=== PATIENT | female | born 1940 | race Caucasian/White ===

== ENCOUNTER 2023-10-01 11:02 | Outpatient (AMB) | payer MEDICARE, SELFPAY ==
--- NOTE | 2023-10-01 11:04 | A.OFFVIS_ITS ---
Vital Signs 10/01/23 11:09 Height 5 ft 2 in Weight 152 lb BMI 27.8 BP 164/80 H Blood Pressure Location Rt brachial Position Sitting Respiration 17 Pulse 80 Pulse Source Pulse Oximeter Pulse Oximetry (%) 98 Oxygen Delivery Method Room Air Intake Visit Reasons: ENP: Dementia - LVM w/add Intake Note: Pt presents for new pt eval for dementia. Internal Wholesaler Required: No Allergies No Known Allergies Allergy (Verified 10/01/23 11:05) Medication List - Last Reconciled 10/01/23 by Ml Covarrubias MD [Apoaequorin PO DAILY] calcium carb-D3-mag ox-zinc ox 333 mg-133 unit -133 mg-5 mg tabs PO cholecalciferol (vitamin D3) 50 mcg PO DAILY HPI Comments Details: 82y/o female comes for evaluation of memory issues. she is accompanied by her son and daughter. Her family noticed that she was having some memory issues atleast for 5 years now and progressively worsened. she has trouble with names ,dates, repeating, missing bills, misplacing things , purse etc. she writes her appointments on a calender.she lives alone in an independent house alone and goes to [employer] with her neighbor.Her daughter oversees her finances. she still pays her own bills.she mujica snot remember her grand children names and does not know her grand children His brother brings dinner every night so she does not cook . 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 she is hearing impaired and uses hearing aides she exercises regularly . No known h/o head injury Her mother had some memory issues. [facility] Medical History (Updated 10/01/23 @ 12:12 by Ml Covarrubias MD) Dementia Hemorrhoids Diverticulosis Skin cancer Vitamin D deficiency Nephrolithiasis Small bowel obstruction Cholelithiasis Colonic polyp Iron deficiency anemia Osteopenia Hyperlipidemia Surgical History (Updated 10/01/23 @ 11:16 by Rosalva Joe CMA) H/O lithotripsy Hx of cholecystectomy Social History (Updated 10/01/23 @ 11:17 by Rosalva Joe CMA) Household Members: None Housing: House Alcohol intake: never Patient Tobacco Use Status: Never used Tobacco Use of substances other than those prescribed or required for medical reasons: No Physical Exam Vital Signs: Last Vital Signs Pulse 80 10/01/23 11:09 Resp 17 10/01/23 11:09 BP 164/80 H 10/01/23 11:09 Pulse Ox 98 10/01/23 11:09 Oxygen Delivery Method Room Air 10/01/23 11:09 BMI result Body Mass Index 27.8 Const Other: MOCA- - see attached document for details General: cooperative, healthy appearing, comfortable and no acute distress Nutritional Appearance: average body habitus Eyes Pupils: Equal, round and reactive pupils present Neuro General: gait normal, tone normal, moves all extremities and no focal motor deficits Cranial nerves: Yes Facial sensation intact/muscles of mastication intact, Yes Equal, round and reactive pupils present, Yes Bilaterally intact EOM present, Yes Nystagmus not present, Yes Normal facial strength present, Yes Midline tongue present, Yes Symmetric palate elevation present, Yes Ability to bilaterally rotate head present and Yes Ability to bilaterally elevate shoulders present Gait exam (Neuro): Normal gait present Motor exam (neuro): 5/5 motor strength present throughout and Normal motor muscle tone present throughout Deep tendon reflexes (DTR's): Right triceps reflex intensity grade: 2+, Left triceps reflex intensity grade: 2+, Rt Biceps (C5, C6): 2+, Left biceps reflex intensity grade: 2+, Right brachioradialis reflex intensity grade: 2+, Left brachioradialis reflex intensity grade: 2+, Right patellar reflex intensity grade: 2+ and Left patellar reflex intensity grade: 2+ Psych Appearance: grossly normal Speech and movement: Normal speech and movement present Assessment & Plan Assessment & Plan (1) Dementia: Comment: likely ALzheimers Code(s): F03.90 - Unspecified dementia, unspecified severity, without behavioral disturbance, psychotic disturbance, mood disturbance, and anxiety Category: Medical Plan I will evaluate ehr with MRI brain, labs - Vit B 12 TSH ESR CBC CMP Trial on Memantine XR 7 mg and titrate upto 28 mg qd Cognitive therapy Orders: Orders MR head/brain wo con Today - Unspecified dementia, unspecified severity, without behavioral disturbance, psychotic disturbance, mood disturbance, and anxiety Vitamin B12 and Folate Today . - Unspecified dementia, unspecified cinthia rity, without behavioral disturbance, psychotic disturbance, mood disturbance, and anxiety TSH reflex Free T4 Today .90 - Unspecified dementia, unspecified severity, without behavioral disturbance, psychotic disturbance, mood disturbance, and anxiety Comprehensive Met. Panel Today - Unspecified dementia, unspecified severity, without behavioral disturbance, psychotic disturbance, mood disturbance, and anxiety Complete Blood Count Auto Diff Today - Unspecified dementia, unspecified severity, without behavioral disturbance, psychotic disturbance, mood disturbance, and anxiety Vitamin D 25-OH (D2 and D3) Today - Unspecified dementia, unspecified severity, without behavioral disturbance, psychotic disturbance, mood disturbance, and anxiety Erythrocyte Sedimentation Rate Today - Unspecified dementia, unspecified severity, without behavioral disturbance, psychotic disturbance, mood disturbance, and anxiety Referrals Speech and Hearing Referral - Unspecified dementia, unspecified severity, without behavioral disturbance, psychotic disturbance, mood disturbance, and anxiety Medications: New 2 memantine after 30 day course of 14 mg 21 mg PO DAILY 30 ea 0RF memantine 28 mg PO DAILY 30 ea 6RF memantine 7 mg PO DAILY 30 ea 0RF memantine after 30 day course of 7 mg 14 mg PO DAILY 30 ea 0RF Coding Level of Care Code New Pt Level 4 (25708) Diagnoses Dementia
[2023-10-01 11:09] VITALS: BP 164/80; PULSE 80; RESP 17; O2SAT 98; BMI 27.8
== END 2023-10-01 12:31 | disposition home or self-care (01) ==
PROVIDERS: PCP Student in an Organized Health Care Education/Training Program; Visit Provider Psychiatry & Neurology Neurology
DX: F03.90 Unspecified dementia, unspecified severity, without behavioral disturbance, psychotic disturbance, mood disturbance, and anxiety (principal)
CPT/HCPCS: 99204

== ENCOUNTER → 2023-10-01 11:02 | Outpatient (BNVA) | payer MEDICARE, SELFPAY | PROVIDERS: PCP Student in an Organized Health Care Education/Training Program; Visit Provider Psychiatry & Neurology Neurology ==

== ENCOUNTER 2023-10-01 12:16 | Outpatient (REF) | payer MEDICARE, SELFPAY ==
[2023-10-01 17:29] LABS: MANUAL DIFF FLAG NO
[2023-10-01 17:35] LABS: Basophils Percent Auto 0.4 % (0-2); Eosinophils Absolute Auto 0.1 X10*3/uL (0.0-0.4); Eosinophils Percent Auto 1.1 % (0-4); Hematocrit 37.3 % (37.0-47.0); Hemoglobin 12.6 g/dl (12.0-16.0); Imm Gran Abs Auto 0.02 X10*3/uL (0.00-0.03); Imm Gran Pct Auto 0.3 % (0.0-0.4); Lymphocytes Absolute Auto 1.5 X10*3/uL (1.2-4.9); Lymphocytes Percent Auto 20.7 % (20-40); Mean Corpuscular HGB Conc 33.8 g/dl (31.0-35.0); Mean Corpuscular Hemoglobin 31.3 pg (27.0-33.0); Mean Corpuscular Volume 92.8 fL (80.0-98.0); Mean Platelet Volume 9.5 fL (9.4-12.3); Monocytes Absolute Auto 0.6 X10*3/uL (0.1-1.2); Monocytes Percent Auto 8.6 % (2-11); Neutrophils Absolute Auto 4.8 x10*3/uL (2.0-8.3); Neutrophils Percent Auto 68.9 % (45-73); Platelet Count 315 X10*3/uL (160-400); Red Blood Count 4.02 X10*6/uL (4.20-5.50); Red Cell Distribution Width 13.3 % (11.0-16.0)
[2023-10-01 18:09] LABS: Alanine Aminotransferase 18 U/L (0-31); Albumin Level 4.2 g/dL (3.5-5.0); Alkaline Phosphatase 69 U/L (39-117); Anion Gap 16 (12-20); Aspartate Amino Transferase 32 U/L (5-31); Bilirubin Total 0.4 mg/dL (0.0-1.0); Blood Urea Nitrogen 19 mg/dL (9-16); Calcium 9.8 mg/dL (8.4-10.2); Carbon Dioxide 24 mmol/L (22-29); Chloride 108 mmol/L (96-108); Estimated Glomerular Filt Rate > 60; Glucose Random 96 mg/dL (60-115); Potassium 3.6 mmol/L (3.3-5.1); Sodium 144 mmol/L (135-145); Total Protein 7.2 g/dL (6.5-8.0)
[2023-10-01 18:14] LABS: Erythrocyte Sedimentation Rate 40 MM/HR (0-20)
[2023-10-01 18:24] LABS: TSH reflex Free T4 1.03 uIU/mL (0.32-4.0)
[2023-10-01 18:33] LABS: Folate 15.7 ng/mL (> or = 4.0); Vitamin B12 872 pg/mL (200-900)
[2023-10-05 14:18] LABS: Vitamin D 25-OH, D2 <4 ng/mL; Vitamin D 25-OH, D3 42 ng/mL; Vitamin D 25-OH, Total 42 ng/mL (30-100)
== END 2023-10-01 12:17 | disposition home or self-care (01) ==
LOC: HO.HKASLDS 12:16
PROVIDERS: Visit Provider Psychiatry & Neurology Neurology
DX: F03.90 Unspecified dementia, unspecified severity, without behavioral disturbance, psychotic disturbance, mood disturbance, and anxiety (principal)
CPT/HCPCS: 36415; 80053; 82306; 82607; 82746; 84443; 85025; 85652; 99202

== ENCOUNTER 2024-04-12 15:13 | Outpatient (AMB) | payer MEDICARE, SELFPAY ==
--- NOTE | 2024-04-12 15:18 | MHC.OFFVIS ---
Vital Signs 04/12/24 15:22 Height 5 ft 2 in BP 144/72 H Blood Pressure Location Rt brachial Position Sitting Pulse 95 Pulse Source Pulse Oximeter Pulse Oximetry (%) 98 Oxygen Delivery Method Room Air Intake Visit Reasons: 7 month f/u Intake Note: Patient presents for 7 month follow up. Allergies No Known Allergies Allergy (Verified 04/12/24 15:20) HPI Comments Details: 82y/o female comes for evaluation of memory issues. she is accompanied by her son and daughter. Her family noticed that she was having some memory issues atleast for 5 years now and progressively worsened. she has trouble with names ,dates, repeating, missing bills, misplacing things , purse etc. she writes her appointments on a calender.she lives alone in an independent house alone and goes to [facility] with her neighbor.Her daughter oversees her finances. she still pays her own bills.she mujica snot remember her grand children names and does not know her grand children His brother brings dinner every night so she does not cook . 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 she is hearing impaired and uses hearing aides she exercises regularly . No known h/o head injury Her mother had some memory issues. [facility] Medical History Dementia Hemorrhoids Diverticulosis Skin cancer Vitamin D deficiency Nephrolithiasis Small bowel obstruction Cholelithiasis Colonic polyp Iron deficiency anemia Osteopenia Hyperlipidemia Surgical History H/O lithotripsy Hx of cholecystectomy Social History Household Members: None Housing: House Alcohol intake: never Patient Tobacco Use Status: Never used Tobacco Physical Exam Const Other: MOCA- /30- see attached document for details General: cooperative, healthy appearing, comfortable and no acute distress Nutritional Appearance: average body habitus Eyes Pupils: Equal, round and reactive pupils present Neuro General: gait normal, tone normal, moves all extremities and no focal motor deficits Cranial nerves: Yes Facial sensation intact/muscles of mastication intact, Yes Equal, round and reactive pupils present, Yes Bilaterally intact EOM present, Yes Nystagmus not present, Yes Normal facial strength present, Yes Midline tongue present, Yes Symmetric palate elevation present, Yes Ability to bilaterally rotate head present and Yes Ability to bilaterally elevate shoulders present Gait exam (Neuro): Normal gait present Motor exam (neuro): 5/5 motor strength present throughout and Normal motor muscle tone present throughout Deep tendon reflexes (DTR's): Right triceps reflex intensity grade: 2+, Left triceps reflex intensity grade: 2+, Rt Biceps (C5, C6): 2+, Left biceps reflex intensity grade: 2+, Right brachioradialis reflex intensity grade: 2+, Left brachioradialis reflex intensity grade: 2+, Right patellar reflex intensity grade: 2+ and Left patellar reflex intensity grade: 2+ Psych Appearance: grossly normal Speech and movement: Normal speech and movement present Results Reviewed Results Reviewed: MRI 10/2023 Mild to moderate volume loss White matter disease Assessment & Plan Assessment & Plan (1) Dementia: Comment: 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
[2024-04-12 15:22] VITALS: BP 144/72; PULSE 95; O2SAT 98
--- NOTE | 2024-04-12 16:08 | A.OFFVIS_ITS ---
Vital Signs 04/12/24 15:22 Height 5 ft 2 in BP 144/72 H Blood Pressure Location Rt brachial Position Sitting Pulse 95 Pulse Source Pulse Oximeter Pulse Oximetry (%) 98 Oxygen Delivery Method Room Air Intake Visit Reasons: 7 month f/u Allergies No Known Allergies Allergy (Verified 04/12/24 15:20) HPI Comments Details: 82y/o female comes for evaluation of memory issues. she is accompanied by her son and daughter. Patient was seen by myself and Dr. Covarrubias. Her family noticed that she was having some memory issues atleast for 5 years now and progressively worsened. she has trouble with names ,dates, repeating, missing bills, misplacing things , purse etc. she writes her appointments on a calender.she lives alone in an independent house alone and goes to [facility] with her neighbor.Her daughter oversees her finances. she still pays her own bills.she mujica snot remember her grand children names and does not know her grand children Her brother brings dinner every night so she does not cook . 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 she is hearing impaired and uses hearing aides she exercises regularly, walks 2-3 miles. No known h/o head injury Her mother had some memory issues MRI October 2023. [facility] Medical History Dementia Hemorrhoids Diverticulosis Skin cancer Vitamin D deficiency Nephrolithiasis Small bowel obstruction Cholelithiasis Colonic polyp Iron deficiency anemia Osteopenia Hyperlipidemia Surgical History H/O lithotripsy Hx of cholecystectomy Social History Household Members: None Housing: House Alcohol intake: never Patient Tobacco Use Status: Never used Tobacco Physical Exam Vital Signs: Last Vital Signs Pulse 95 04/12/24 15:22 BP 144/72 H 04/12/24 15:22 Pulse Ox 98 04/12/24 15:22 Oxygen Delivery Method Room Air 04/12/24 15:22 Orientation What is the (year) (season) (date) (day) (month)?: season and month Where are we (state) (county) (town or city) (hospital) (floor)?: state and town or city Attention & Calculation (CHOOSE ONE) Ask pt to begin with 100 & count backward by 7. Stop after 5 repeats. If pt cannot ask them to spell the word WORLD backward.: 93 and 86 Spell WORLD backwards (DLROW): 5 letters Language Show patient a wristwatch & ask what it is. Repeat for pencil.: watch and pencil Ask the patient to repeat the phrase 'No ifs, ands, or buts' after you.: correct Ask the patient to 'take a piece of paper with their right hand' 'fold paper in half' 'place paper on floor': take paper in right hand Print the sentence 'CLOSE YOUR EYES' on a piece. If patient actually closes eyes then score.: followed written direction Give patient a blank piece of paper & ask to write a sentence. 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 Code(s): F03.90 - Unspecified dementia, unspecified severity, without behavioral disturbance, psychotic disturbance, mood disturbance, and anxiety Category: Medical Qualifiers: Dementia type: Alzheimer's Alzheimer's disease onset: other onset Dementia severity: mild Dementia behavioral or psychological symptom: without behavioral, psychotic, or mood disturbance or anxiety Qualified Code(s): G30.8 - Other Alzheimer's disease; F02.A0 - Dementia in other diseases classified elsewhere, mild, without behavioral disturbance, psychotic disturbance, mood disturbance, and anxiety Plan Start taking Namenda as directed 28mg PO daily. Life Alert for emergent situations in case of falls, as patient lives alone in a 3 story home. Continue walking daily. Continue to stay socially engaged with the [facility], friends and family. Coding Level of Care Code Est Pt Level 3 (41259) Diagnoses Mild Alzheimer's dementia of other onset, without behavioral disturbance, psychotic disturbance, mood disturbance, or anxiety G30.8; F02.A0 Dementia type: Alzheimer's Alzheimer's disease onset: other onset Dementia severity: mild Dementia behavioral or psychological symptom: without behavioral, psychotic, or mood disturbance or anxiety
--- NOTE | 2024-04-12 16:19 | A.OFFVIS_ITS ---
Vital Signs 04/12/24 15:22 Height 5 ft 2 in BP 144/72 H Blood Pressure Location Rt brachial Position Sitting Pulse 95 Pulse Source Pulse Oximeter Pulse Oximetry (%) 98 Oxygen Delivery Method Room Air Intake Visit Reasons: 7 month f/u Allergies No Known Allergies Allergy (Verified 04/12/24 15:20) HPI Comments Details: 83 y/o female comes for evaluation of memory issues. she is accompanied by her son and daughter. Her family noticed that she was having some memory issues at least for 5 years now and progressively worsened. she has trouble with names ,dates, repeating, missing bills, misplacing things , purse etc. she writes her appointments on a calender.she lives alone in an independent house alone and goes to [facility] with her neighbor.Her daughter oversees her finances. she still pays her own bills.she mujica snot remember her grand children names and does not know her grand children Her brother brings dinner every night so she does not cook . 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 she is hearing impaired and uses hearing aides she exercises regularly, walks 2-3 miles. No known h/o head injury Her mother had some memory issues MRI October 2023. MMSE today. [facility] Medical History Dementia Hemorrhoids Diverticulosis Skin cancer Vitamin D deficiency Nephrolithiasis Small bowel obstruction Cholelithiasis Colonic polyp Iron deficiency anemia Osteopenia Hyperlipidemia Surgical History H/O lithotripsy Hx of cholecystectomy Social History Household Members: None Housing: House Alcohol intake: never Patient Tobacco Use Status: Never used Tobacco Review of Systems Const All systems reviewed & are unremarkable except as noted in HPI and below Physical Exam Vital Signs: Last Vital Signs Pulse 95 04/12/24 15:22 BP 144/72 H 04/12/24 15:22 Pulse Ox 98 04/12/24 15:22 Oxygen Delivery Method Room Air 04/12/24 15:22 Const Other: MOCA- - see attached document for details General: cooperative, healthy appearing, comfortable and no acute distress Nutritional Appearance: average body habitus Eyes Pupils: Equal, round and reactive pupils present Neuro General: gait normal, tone normal, moves all extremities and no focal motor deficits Cranial nerves: Yes Facial sensation intact/muscles of mastication intact, Yes Equal, round and reactive pupils present, Yes Bilaterally intact EOM present, Yes Nystagmus not present, Yes Normal facial strength present, Yes Midline tongue present, Yes Symmetric palate elevation present, Yes Ability to bilaterally rotate head present and Yes Ability to bilaterally elevate shoulders present Gait exam (Neuro): Normal gait present Motor exam (neuro): 5/5 motor strength present throughout and Normal motor muscle tone present throughout Deep tendon reflexes (DTR's): Right triceps reflex intensity grade: 2+, Left triceps reflex intensity grade: 2+, Rt Biceps (C5, C6): 2+, Left biceps reflex intensity grade: 2+, Right brachioradialis reflex intensity grade: 2+, Left brachioradialis reflex intensity grade: 2+, Right patellar reflex intensity grade: 2+ and Left patellar reflex intensity grade: 2+ Psych Appearance: grossly normal Speech and movement: Normal speech and movement present Results Reviewed Results Reviewed: MRI 2023 Impressions: No acute intracranial process. Chronic small vessel ischemic changes in both cerebral hemisphere. 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 Continue Walking daily as tolerable. Life-alert bracelet for emergencies, and falls. Continue doing puzzles, writing exercises, games online. Social Engagement with friends and family and elderly center for meals. Health care proxy is daughter and son, need a family meeting to assess needs. Reviewed MRI results with patient. Will follow up in 6 months with patient via Telehealth visit, call if you have any concerns or message us on the portal. Coding Level of Care Code Est Pt Level 4 (92835) Diagnoses Dementia F03.90 Dementia type: Alzheimer's Dementia severity: mild
--- OUTSIDE RECORDS SUMMARY | 2024-04-19 15:07 | XMS_ITS ---
Author Organization [facility], Address [address] [facility] [place] [address] Care Team Providers Care Ventilation Worker Name Role Phone Juanpablo Jane [phone] ALLERGIES, ADVERSE REACTIONS, ALERTS None MEDICATIONS Medication Code Code System Start Date Stop Date Route Dosage Directions Fill Instructions amoxicillin-pot clavulanate 713966 RxNorm 4 oral 1 memantine 0 RxNorm oral PROBLEMS Problem Name Code Code System Start Date End Date Stat us Unspecified dementia, unspecified severity 63622326 [facility] Active Cellulitis of right upper limb 63940422928523024 [facility] 04/18/2024 Active ENCOUNTERS Encounter Diagnosis Code Code System Date Stat us Cellulitis of right upper limb 34662256331643402 [facility] 04/18/2024 Active IMMUNIZATIONS Vaccine Code Code System Vaccine Name Date Status Lot Number Fender Finisher Name Additional Notes 115 CVX TDAP 04/18/20 24 Completed [id number] [employer] P[employer] VITAL SIGNS Code Code System Vitals Name Date Value and Un its 8462-4 [facility] Blood Pressure-Diastolic 04/18/2024 73 mmHg 8480-6 [facility] Blood Pressure-Systolic 04/18/2024 1 57 mmHg 8867-4 [facility] Heart Rate 04/18/2024 104 /min 9279-1 [facility] Respiratory Rate 04/18/2024 16 /min 8310-5 [facility] Body Temperature 04/18/2024 96.5 F 28855-6 [facility] Oxygen Saturation 04/18/2024 96 % SOCIAL HISTORY * None PROCEDURES Code Code System Procedure Date Status Notes 23565 Cpt4 Vaccine: TDAP 04/18/2024 completed Julio Jimenez - 04/18/2024 Product: ADACEL. 0.5 mL administered by Julio Jimenez on 04/18/2024 12:00 PM. Lot #: [id number]. Vaccine Expiration Date: 01/07/2026. Route: INTRAMUSCULAR. Injection Site: LEFT DELTOID. [facility] [place] [id number]. Fender Finisher: [employer]ee[employer]i Pasteur. Administration: Risks and benefits of procedure and alternatives discussed, and patient verbalized understanding and consent. Vaccine: Tdap (tetanus, diphtheria, and pertussis). First immunization administered during visit, administered to adult patient. 76354 Cpt4 Vaccine: TDAP 04/18/2024 completed Julio AtwoodMike - 04/18/2024 Product: ADACEL. 0.5 mL administered by Julio AngelicMike on 04/18/2024 12:00 PM. Lot #: [id number]. Vaccine Expiration Date: 01/07/2026. Route: INTRAMUSCULAR. Injection Site: LEFT DELTOID. [facility] [place] [phone]. Fender Finisher: [employer]i Pasteur. Administration: Risks and benefits of procedure and alternatives discussed, and patient verbalized understanding and consent. Vaccine: Tdap (tetanus, diphtheria, and pertussis). First immunization administered during visit, administered to adult patient. MEDICAL EQUIPMENT * Patient has no history of implantable devices ASSESSMENT * None TREATMENT PLAN Type Description Date MEDICATION Take 875-125 mg tablet 04/18/2024 APPOINTMENT If not feeling florentino r in 3 day(s), please see your primary care physician. If you do not have a primary care physician, please return to this clinic. 04/18/2024 Lab Tests None GOALS * None HEALTH CONCERNS * No Health Concerns FUNCTIONAL AND COGNITIVE STATUS * None CONSULTATION NOTES * None DISCHARGE SUMMARY NOTES * None HISTORY AND PHYSICAL NOTES * Patient: COLTEN CARTER, Sex: F (ID# [id number]) Date of : 1940 (83 years) Visit on 04/18/2024 (Log# [id number]) Historian: Lisa - daughter/HCP This is the primary historian, although some historical items may be received from other sources. Triage Notes: pt has dementia and forgot dog was aggressive, got bit Thursday, redness and swelling started today History of Present Illness: Lisa - patients daughter and healthcare proxy - here providing history. Patient has dementia and sustained a dog bite over the weekend. The patient was at her daughter's house and excellentlywent to pet the dog while it was having a treat. The dog bit her left hand. The patient's daughter has been helping take care of the wound since then, however, over the past 24 to 36 hours has developed spreading redness. No fevers chills sweats. No changes in baseline mental status. Patient lives at home alone, however, patient's son comes by nightly for dinner and the patient's daughter/healthcare proxy who is here today states she is able to check on her multiple times a day if recommended. Complaint: The patient presents with a chief complaint of bite wound of the palm of right hand and right middle finger since SatApr 16, 2024. It has the following quality: dog bite. Context - Initial History: The patient reports it was the result of an injury that occurred on 04/16/2024, which was not work related. This is not the result of a motor vehicle accident. The patient reports the bite was from a dog. Patient reports the wound is possibly contaminated with saliva, bleeding is controlled. The patient also reports swelling and redness as abnormal symptoms related to the complaint. Review of Systems: The patient complains of the following recent symptoms: Musculoskeletal: swelling aches/pains Skin: redness bite wound: See HPI The patient denies the following recent symptoms: Constitutional: denies fever, chills Allergies: patient specifies no known allergies Medications: memantine: memantine; (oral) days; 0 refill(s); Problem List: Unspecified dementia, unspecified severity (status Active) Vitals: 11:45 AM (04/18/2024)Temperature: 96.5 ?F, Pulse: 104 BPM, BP: 157/73, Respirations: 16/min, O2 Saturation: 96%, O2 Delivery: RAFirst entered 04/18/2024 11:45 by Julio Jimenez Physical Exam: The following exam elements were documented to be normal: Psychiatric: oriented and alert. General: Well appearing, no acute distress HEENT: - NC/AT - no conjunctival injection or scleral icterus MSK: Linear laceration by the base of the right middle finger on the palmar side about 1 cm in length. There is no purulent drainage. There is another puncture wound on the dorsal side of the middle finger proximal phalanx. There is erythema that extends up the dorsal side of the hand and wrist to about 1 and half inches above the wrist. Warm to touch. No crepitance. Moving all fingers appropriately. No pain with passive extension of the middle finger. Neuro: Awake and alert to self, doctor's office Procedures and Supplies: Vaccine: TDAPProduct: ADACEL. 0.5 mL administered by Julio Jimenez on 04/18/2024 12:00 PM.Lot #: [id number]. Vaccine Expiration Date: 01/07/2026. Route: INTRAMUSCULAR. Injection Site: LEFT DELTOID. [facility] [place] [id number]. Fender Finisher: [email or web address]. Administration: Risks and benefits of procedureand alternatives discussed, and patient verbalized understanding and consent. Vaccine: Tdap (tetanus, diphtheria, and pertussis). First immunization administered during visit, administered to adult patient. Code(s): 31767, 56034 Ordered 04/18/2024 11:56 by Juanpalbo Jane Administered 04/18/2024 12:01 by Julio Jimenez Completed 04/18/2024 12:01 by Julio Jimenez Diagnoses: Cellulitis of right upper limb (L03.113) Medication Orders: Prescribed: amoxicillin-pot clavulanate 875-125 mg tablet; Take 1 Tablet (oral) every 12 hours for 10 Days; Total Qty: 20 (twenty) Tablet; 0 refill(s); Substitutions allowed; Earliest Fill Date: 04/18/2024ePrescribed at 11:59 AM on 04/18/2024 by DINO Aquino-CPrescription sent to [facility]acy#[id number] (P: [phone] F: [phone]) [address] [facility] [place], [address] Plan: If not feeling better in 3 day(s), please see your primary care physician. If you do not have a primary care physician, please return to this clinic. Medical Decision Making Notes: Patient with dementia with an extremity cellulitis secondary to a dog bite. Tetanus updated. Patient is accompanied by her daughter Lisa who is also the healthcare proxy. I spoke with Lisa regarding the considerations of managing this given her dementia and inability to reliably monitor this at home and to seek repeat evaluation if worsening and therefore the recommendation that hospital treatment may be the safest, also discussed the potential for infection causing worsening mental status or delirium with her dementia. After discussion Lisa feels as though they can manage this safely as an outpatient, she will check on her regularly throughout the day, area of cellulitis has been marked, will start Augmentin, education provided on reasons to seek ER evaluation Visit discharged at 04/18/2024 11:59:56 AM by Juanpablo Jane PA-C Signed electronically by Juanpablo Jane PA-C on 04/18/2024 1:39:59 PM IMAGING NOTES * None LABORATORY REPORT NARRATIVE NOTES * None PATHOLOGY REPORT NARRATIVE NOTES * None PROGRESS NOTES * None
== END 2024-04-12 16:00 | disposition home or self-care (01) ==
PROVIDERS: PCP Student in an Organized Health Care Education/Training Program; Visit Provider Physician Assistant Medical
DX: G30.8 Other Alzheimer's disease (principal); F02.A0 Dementia in other diseases classified elsewhere, mild, without behavioral disturbance, psychotic disturbance, mood disturbance, and anxiety
CPT/HCPCS: 99213

== ENCOUNTER → 2024-04-12 15:13 | Outpatient (BNVA) | payer MEDICARE, SELFPAY | PROVIDERS: PCP Student in an Organized Health Care Education/Training Program; Visit Provider Psychiatry & Neurology Neurology | DX: G30.8 Other Alzheimer's disease (principal); F02.A0 Dementia in other diseases classified elsewhere, mild, without behavioral disturbance, psychotic disturbance, mood disturbance, and anxiety | CPT/HCPCS: 99212 ==

== ENCOUNTER 2024-07-20 13:48 | Outpatient (AMB) | payer MEDICARE, SELFPAY ==
--- NOTE | 2024-07-20 13:57 | MHC.OFFVIS ---
Vital Signs 07/20/24 13:58 Height 5 ft 2 in Weight 155 lb BMI 28.3 BP 152/70 H Blood Pressure Location Rt brachial Position Sitting Pulse 92 Pulse Source Pulse Oximeter Pulse Oximetry (%) 97 Oxygen Delivery Method Room Air Intake Visit Reasons: Follow Up 3mo Intake Note: Patient presents for 3 month follow up dementia Pillowcase Maker Required: No Accompanied by: Daughter Allergies No Known Allergies Allergy (Verified 07/20/24 14:01) HPI Comments Details: 83 y/o female comes for evaluation of cognitive decline. She is accompanied by her son and daughter. Her family noticed that she was having some memory issues at least for 5 years now and progressively worsened. She has trouble with names, dates, repeating, missing bills, misplacing things, purse etc. She writes everything down so she doesn't forget especially appointments on a calender. She lives alone in an independently in her house and goes to senior center with her neighbor. (Isi) She missed a step on the porch and fell and chipped a tooth in Apr 2024. Her daughter oversees her finances. She does not remember her grand children names and does not know her grand children. Her brother brings dinner every night so she does not cook. Her mood is good. 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 She is hearing impaired and needs an ear lavage for tuning of the aides. She walks 1 mile daily, she drinks a lot of water. Her mother had some memory issues [facility] Medical History Dementia Hemorrhoids Diverticulosis Skin cancer Vitamin D deficiency Nephrolithiasis Small bowel obstruction Cholelithiasis Colonic polyp Iron deficiency anemia Osteopenia Hyperlipidemia Surgical History H/O lithotripsy Hx of cholecystectomy Social History Household Members: None Housing: House Alcohol intake: never Patient Tobacco Use Status: Never used Tobacco Review of Systems Const All systems reviewed & are unremarkable except as noted in HPI and below Physical Exam Vital Signs: Last Vital Signs Pulse 92 07/20/24 13:58 BP 152/70 H 07/20/24 13:58 Pulse Ox 97 07/20/24 13:58 Oxygen Delivery Method Room Air 03/12/25 13:58 BMI result Body Mass Index 28.3 Const Other: MOCA- - see attached document for details General: cooperative, healthy appearing, comfortable and no acute distress Nutritional Appearance: average body habitus Eyes Pupils: Equal, round and reactive pupils present Neuro General: gait normal, tone normal, moves all extremities and no focal motor deficits Cranial nerves: Yes Facial sensation intact/muscles of mastication intact, Yes Equal, round and reactive pupils present, Yes Bilaterally intact EOM present, Yes Nystagmus not present, Yes Normal facial strength present, Yes Midline tongue present, Yes Symmetric palate elevation present, Yes Ability to bilaterally rotate head present and Yes Ability to bilaterally elevate shoulders present Gait exam (Neuro): Normal gait present Motor exam (neuro): 5/5 motor strength present throughout and Normal motor muscle tone present throughout Deep tendon reflexes (DTR's): Right triceps reflex intensity grade: 2+, Left triceps reflex intensity grade: 2+, Rt Biceps (C5, C6): 2+, Left biceps reflex intensity grade: 2+, Right brachioradialis reflex intensity grade: 2+, Left brachioradialis reflex intensity grade: 2+, Right patellar reflex intensity grade: 2+ and Left patellar reflex intensity grade: 2+ Psych Appearance: grossly normal Speech and movement: Normal speech and movement present Assessment & Plan Assessment & Plan (1) Dementia: Comment: likely ALzheimers Code(s): F03.90 - Unspecified dementia, unspecified severity, without behavioral disturbance, psychotic disturbance, mood disturbance, and anxiety Category: Medical Qualifiers: Dementia type: Alzheimer's Alzheimer's disease onset: other onset Dementia severity: mild Dementia behavioral or psychological symptom: without behavioral, psychotic, or mood disturbance or anxiety Qualified Code(s): G30.8 - Other Alzheimer's disease; F02.A0 - Dementia in other diseases classified elsewhere, mild, without behavioral disturbance, psychotic disturbance, mood disturbance, and anxiety (2) Vitamin D deficiency: Code(s): E55.9 - Vitamin D deficiency, unspecified Category: Medical (3) Iron deficiency anemia: Code(s): D50.9 - Iron deficiency anemia, unspecified Category: Medical Qualifiers: Iron deficiency anemia type: unspecified iron deficiency Qualified Code(s): D50.9 - Iron deficiency anemia, unspecified (4) Arthritis of hand, left, degenerative: Code(s): M19.042 - Primary osteoarthritis, left hand Category: Medical Qualifiers: Osteoarthritis type: primary Qualified Code(s): M19.042 - Primary osteoarthritis, left hand (5) Arthritis of hand, right, degenerative: Code(s): M19.041 - Primary osteoarthritis, right hand Category: Medical Qualifiers: Osteoarthritis type: primary Qualified Code(s): M19.041 - Primary osteoarthritis, right hand Plan Bilateral Arthritis of Hands Bouchards Nodes? Curvature of joints? Degenerative. Cognitive Decline Namenda 28mg PO daily by mouth, patient declined. Continue Walking daily as tolerable 1 mile to 2miles with a walking stick. Life-alert bracelet for emergencies, and falls. Continue doing puzzles, writing , games online engage in social events with friends and family daily or weekly visits. Health care proxy is daughter and son, needs a family meeting to assess needs. Ear Lavage with PCP as needed, to improve hearing aid tuning. Will follow up in 6 months with patient. Patient Instructions: May take Melatonin and maloney juice for sleep disturbances. May take Turmeric Supplements for inflammation of the Rheumatoid Arthritis. May do yoga for hand strengthening exercises. May do ear lavage to help with hearing. F/u with dentist for chipped tooth as needed. Coding Level of Care Code Est Pt Level 4 (42060) Diagnoses Mild Alzheimer's dementia of other onset, without behavioral disturbance, psychotic disturbance, mood disturbance, or anxiety G30.8; F02.A0 Dementia type: Alzheimer's Alzheimer's disease onset: other onset Dementia severity: mild Dementia behavioral or psychological symptom: without behavioral, psychotic, or mood disturbance or anxiety Vitamin D deficiency E55.9 Iron deficiency anemia, unspecified iron deficiency anemia type D50.9 Iron deficiency anemia type: unspecified iron deficiency Primary osteoarthritis of left hand M19.042 Osteoarthritis type: primary Primary osteoarthritis of right hand M19.041 Osteoarthritis type: primary Time Spent (min) 30
[2024-07-20 13:58] VITALS: BP 152/70; PULSE 92; O2SAT 97; BMI 28.3
--- OUTSIDE RECORDS SUMMARY | 2024-07-20 16:16 | XMS_ITS | Data Portability ---
Author Organization [facility], [address] Address [address] [place] [address] Assessment No assessment recorded. Plan of Treatment Reminders Order Date Submit Date Provider Last Modified By Organization Details Last Modified Time Details Appointments None recorded. Lab rapid SARS CoV 2 Ag, QL IA, respiratory specimen 2022 023 [email or web address], [address] [place], [address], 17:39:15 Referral None recorded. Procedures cerumen removal using irrigation (PROC) 2022 023 [email or web address] Not available 3 08:05:52 Surgeries None recorded. Imaging None recorded. Medication Orders None recorded. Patient TargetsNo targets recorded. Patient Instructions Encounter Date Encounter Id Patient Instructions Last Modified By Organization Details Last Modified Time 06/27/2022 [id number] shortness of breath: care instructions [email or web address] Not available 06/27/2022 17:39:15 earache: care instructions [id number] Not available 06/27/2022 18:39:21 Reason for Referral None Reported. Results Created Date Observation Date Name Description Value Unit Range Abnormal Flag Note LastModifiedBy Organization Detail LastModifiedTime 06/27/1906/27/2022 rapid SARS CoV 2 Ag, QL IA, respi rator y speci men Unknown Analyte Normal =Negat jameel Not Available [address] [place], [address], 06/27/2022 16:29:37 0206/27/2022 rapid SARS CoV 2 Ag, QL IA, respi rator y speci men Unknown Analyte negati ve Not Available [address] [place], [address], 06/27/2022 16:29:37 Result Notes None recorded. Problems No Known Problems Procedures Surgical History Date Name Laterality Status Provider Name and Address Organization Details Recorded Time Cerumen Removal by Irrigation completed KATHERIN FLYNN PA - [facility] 06/27/2022 18:31:09 Imaging Results None recorded. Procedure Notes None recorded. Medical Equipment None Reported. Allergies No known drug allergies Medications Name Sig Start Date Stop Date Status Note LastModified by Organization Details LastModified Time ibuprofen 800 mg tablet TAKE 1 TABLET BY MOUTH EVERY 6 HOURS NEEDED FOR PAIN 06/27 completed Not Available Not Available Not Available Vitals Date Recorded Body weight Oxygen saturation Oxygen saturation in Arterial blood by Pulse oximetry Heart rate Respiratory rate Pain severity - 0-10 verbal numeric rating [Score] - Reported Body mass index (BMI) Body height Body temperature Respiratory rate Oxygen saturation Oxygen saturation in Arterial blood by Pulse oximetry Systolic blood pressure Diastolic blood pressure Provider Name and Address Organization Details Last Updated DateTime 3 82828.9 3 g 100 % 100 % 78 /min 22 /min 0 23.3 kg/m2 165.1 cm 97.5 [degF] 20 /min 99 % 99 % 129 mm[Hg] 74 mm[Hg] JUANY ABIRD PA - [facility] 16:30:10 Social History Question Answer Notes LastModified by Organizat ion Details LastModified Time Tobacco Smoking Status Never Smoker JUANY spring PA - [facility] 06/27/2022 16:30:46 What Is Your Level Of Alcohol Consumption? None Information not available 06/27/2022 Do You Use Any Illicit Or Recreational Drugs? No Information not available 06/27/2022 Have You Recently Traveled Abroad? No Information not available 06/27/2022 Do You Or Have You Ever Used Any Other Forms Of Tobacco Or Nicotine? No Information not available 06/27/2022 Sex: Unknown Functional Status None recorded. Mental Status None recorded. Family History Relationship Description Onset Age of this Age Resolved Age Notes LastModified by Organization Details LastModified Time Sister Malignant tumor of breast [email or web address] Not available 2022 16:31:03 Medical History No medical history recorded. Gynecological HistoryNo gynecological history recorded. Obstetrics History GPAL:G 0 P 0 0 0 0 Immunizations Vaccine Type Date Status Note Provider Nam e and Address Organization Details Recorded Time Influenza, high-dose, quadrivalent, PF 1 completed JUANY MACHNACZ null, PA - [facility] 06/27/2022 16:47:30 Influenza, adjuvanted, quadrivalent, PF 2 completed JUANY MACHNACZ null, PA - [facility] 06/27/2022 16:47:30 COVID-19, mRNA, LNP-S, PF, 100 mcg/0.5mL dose or 50 mcg/0.25mL dose 1 completed JUANY MACHNACZ null, PA - [facility] 06/27/2022 16:47:30 COVID-19, mRNA, LNP-S, PF, 100 mcg/0.5mL dose or 50 mcg/0.25mL dose 1 completed JUANY MACHNACZ null, PA - [facility] 06/27/2022 16:47:30 COVID-19, mRNA, LNP-S, PF, 100 mcg/0.5mL dose or 50 mcg/0.25mL dose 2 completed JUANY MACHNACZ null, PA - [facility] 06/27/2022 16:47:30 COVID-19, mRNA, LNP-S, PF, 100 mcg/0.5mL dose or 50 mcg/0.25mL dose 1 completed JUANY MACHNACZ null, PA - [facility] 06/27/2022 16:47:30 COVID-19, mRNA, LNP-S, bivalent, PF, 50 mcg/0.5 mL or 25mcg/0.25 mL dose 2 completed JUANY MACHNACZ null, PA - [facility] 06/27/2022 16:47:30 Td (adult), 2 Lf tetanus toxoid, preservative free, adsorbed 2 completed [facility] 06/27/2022 16:47:30 Past Encounters Encounter ID Performer Location Encounter Start Date Encounter Closed Date Diagnosis/Indication Diagnosis SNOMED-CT Code Diagnosis ICD10 Code Diagnosis Note [id number] [facility] [place] [address] 10/11/2020 11:55:12 10/11/2020 12:27:58 [id number] [address] [place] [address] 11/30/2021 17:13:10 11/30/2021 17:34:46 [id number] [address] [place] [address] 07/11/2019 18:00:12 07/11/2019 19:41:05 [id number] [address] [place] [address] 10/24/2016 13:26:54 10/24/2016 13:50:34 [id number] [address] [place] [address] 01/13/2019 11:38:13 01/13/2019 19:57:22 [id number] [address] [place] [address] 10/23/2018 13:49:03 10/23/2018 14:41:33 [id number] [address] [facility] [place] [address] 10/29/2015 16:58:17 10/29/2015 17:56:08 [id number] [address] [facility] [place] [address] 11/17/2021 16:23:43 11/17/2021 18:33:16 [id number] [address] [place], [place] [address] 08/28/2018 13:47:03 08/28/2018 14:17:[id number] [place] [address] 08/04/2015 13:32:35 08/04/2015 14:36:39 [id number] [address] [facility] [address] 07/14/2021 13:21:36 07/14/2021 13:51:08 [id number] [facility] [place] [address] 07/15/2021 15:04:34 07/15/2021 16:08:29 [id number] RENAY RANGEL MD [address] [facility] [place] [address] 06/27/2022 16:26:52 06/27/2022 18:45:33 Impacted cerumen in right ear [id number] H61.21 Ear Wax Removal Debrox Otic:Put 5-10 drops in affected ear canal twice daily; not to exceed use beyond 4 days.To lower the risk of dizziness, hold the container in your hand for a few minutes to warm it.To apply ear drops, wash your hands first. To avoid contaminat ion, do not touch the dropper tip or let it touch your ear or any other surface. Lie on your side or tilt the affected ear upward. Hold the dropper directly over the ear and place 5 to 10 drops into the ear canal. To help the drops roll into the ear of an adult, hold the earlobe up and back. In children, hold the earlobe down and back. Keep the head tilted for several minutes or insert a soft cotton plug in the ear. Ear Wax Softener1. Colace Liquid for Ear Wax Softenin. Lie down on your side with the affected ear facing up,3. Put 1mL (about 20 drops) of liquid Colace into the ear,4. Let the liquid sit in the ear for 15 minutes so it can do its job.5. After the 15 minutes are up, rinse the affected ear with warm water (this is the irrigation part) so you can get the softened earwax out of your ear canal.You can use the blue bulb usually found in the baby section as a way to help rinse the ear. Health Concerns Section Related Observation LastModified by Organization Detai ls LastModified Time None Recorded Concern Status LastModified by Organization Details LastModified Time None Recorded Advance Directives Directive None Recorded Payers Encounter Date Sequence Insurance Name Policy Number Policy Riggs Covered Member ID Riggs Member ID Guarantor Name 07/14/2021 1 [facility] (MEDICARE REPLACEMENT/A DVANTAGE - PPO) [id number] Anu [place]o [id number] Anu V Cano 07/15/2021 1 [facility] (MEDICARE REPLACEMENT/A DVANTAGE - PPO) [id number] Anu V Cano [id number] Anu V Cano 11/17/2021 1 [facility] (MEDICARE REPLACEMENT/A DVANTAGE - PPO) [id number] Anu V Cano [id number] Anu V Cano 11/30/2021 1 [facility] (MEDICARE REPLACEMENT/A DVANTAGE - PPO) [id number] Anu V Cano [id number] Anu V Cano 06/27/2022 1 [facility] (MEDICARE REPLACEMENT/A DVANTAGE - PPO) [id number] Anu V Cano [id number] Anu V Cano Notes Date Note Type Note Provider Name and Address Organization Details Recorded Time 06/27/2022 text/html Ear Pain Brief HPIReported bypatient.Location :right Onset/Timing:new onset Quality:no itching; no discharge from the ears; no burning Severity:no fever Context:no recent URI; no recent trauma; no recent ear infection Associated Symptoms:no cough; no sore throat; no tinnitus;muffled hearing SOB/ right ear blocked, and some diarrhea since this afternoon; denies known exposure to covid, request rapid RENAY RANGEL MD [address] [place], [place] [address], [address], PA - [facility] 06/27/2022 18:41:21 OBGyn Episode No OBEpisode recorded.
--- OUTSIDE RECORDS SUMMARY | 2024-07-20 16:16 | XMS_ITS | Clinical Summary ---
Author Organization [facility] Address [address] [place] [address] Phone Care Team Providers Care Stator Tester Name Role Phone Patel Monroy MD Primary Care Provider [phone] Allergies No known active allergies Medications memantine (NAMENDA XR) 14 mg extended release capsule Take 1 Tablet by mouth daily. 4 Active memantine (NAMENDA XR) 7 mg extended release capsule Take by mouth. Active fexofenadine (SALVADOR) 180 mg tablet Take 1 Tablet by mouth daily for 30 days. 4 Active calcium carbonate/vitam in D3 (CALCIUM 500 + D ORAL) Take 1 Tablet by mouth 2 times daily. 4 Active UNABLE TO FIND Apoaequorin 10 MG Cap Active Active Problems Problem Noted Date Diagnosed Date Osteopenia 01/28/2018 Abnormal glucose 01/04/2018 Hyperlipidemia 01/04/2018 Iron deficiency anemia 01/04/2018 Benign colonic polyp 07/10/2016 Cholelithiasis 08/15/2015 Small bowel obstruction 08/15/2015 Nephrolithiasis 03/13/2015 Vitamin D deficiency 03/13/2015 Internal hemorrhoids 08/27/2011 Neoplasm of uncertain behavior of skin 2 Diverticulosis 07/15/2011 Encounters Date Type Department Care Team Description 06/02/2024 2:30 PM EST Office Visit Internal Medicine - [place] [address] [facility] [address] [place] [address] Patel Monroy MD Medicare annual wellness visit, subsequent (Primary Dx); Mixed hyperlipidemia; Vitamin D deficiency; Neoplasm of uncertain behavior of skin; Other abnormal glucose; Other fatigue; MIGUEL (acute kidney injury) (CMS/HCC) from Last 3 Months Immunizations Name Administration Dates Next Due Influenza trivalent, 0.5mL (Fluad) 65yo and olde r 01/19/2023 Pfizer SARS-CoV-2 COVID-19, mRNA, LNP-S, preservative free 02/23/2023 Pneumococcal conjugate 20 va lent (Prevnar 20, PCV 20) 2mo and older 01/19/2023 Surgical History Surgery Date Site/Laterality Comments CHOLECYSTECTOMY N/A PROCEDURE: HISTORICAL CHOLECYSTECTOMY Medical History Medical History Date Comments Hyperlipidemia 01/04/2018 DX:Hyperlipidemi a Nephrolithiasis 03/13/2015 DX:Nephrolithias is Family History Medical History Relation Name Comments Prostate cancer Brother Other cancer Father Breast cancer Sister Dementia Sister Relation Name Status Comments Brother Father Sister Social History Tobacco Use Types Packs/Day Years Used Date Smoking Tobacco: Former Cigarettes 0.5 42 0 05/11/1956 - 05/11/1998 Smokeless Tobacco: Never Tobacco Cessation:Counseling Given: Not Answered Alcohol Use Standard Drinks/Week Comments No 0 (1 standard drink = 0.6 oz pur e alcohol) Comments Unknown Sex and Gender Information Value Date Recorded Sex Assigned at Not on file Legal Sex Female 6:22 AM EST Gender Identity Not on file Sexual Orientation Not on file Obstetrics History Last Filed Vital Signs Vital Sign Reading Time Taken Comments Blood Pressure 122/74 06/02/2024 3:04 PM EST Pulse 88 06/02/2024 3:04 PM EST Temperature 36.7 ??C (98 ??F) 06/02/2024 3:04 PM EST Respiratory Rate - - Oxygen Saturation 99% 06/02/2024 3:04 PM EST Inhaled Oxygen Concentration - - Weight 68.9 kg (152 lb) 06/02/2024 3:04 PM EST Height 162.6 cm (5' 4 ) 05/20/2023 2:59 PM EST Body Mass Index 26.09 05/20/2023 2:59 PM EST Plan of Treatment Upcoming Encounters Date Type Department Care Team (Late st Contact Info) Description 11/30/2024 2:15 PM EDT Office Visit Internal Medicine - [address] [place] [address] Patel Monroy MD [address] [facility] [address] [place] [address] Health Maintenance Due Date Last Done Comments Zoster Vaccines (1 of 2) 11/21/1959 RSV Immunization Patients 60+ Years Old (1 - 1-dose 75+ series) 11/21/2014 Social Influencers of Health Screening 04/13/2022 COVID-19 Vaccine ( season) 2024 07/31/2023, 02/23/2023, 09/25/2022, Additional history exists Influenza Vaccine (#1) 2024 , 02/11/2022, 02/15/2021 Depression Screening 06/02/2025 06/02/2024 Falls Risk Assessment 06/02/2025 06/02/2024 Medicare Annual Wellness Visit 06/02/2025 06/02/2024 Osteoporosis Screening (Bone Density Screening) 01/27/2028 01/26/2018 Cholesterol Screening (Lipid Panel) 06/02/2029 06/02/2024, 01/30/2023 DTaP,Tdap,and Td Vaccines (3 - Td or Tdap) 04/18/2034 04/18/2024, 11/17/2021 Pneumococcal Vaccine: 50+ Years Completed 01/19/2023 HIB Vaccines Aged Out No longer eligi ble based on patient's age to complete this topic HPV Vaccines Aged Out No longer eligi ble based on patient's age to complete this topic Hepatitis A Vaccines Aged Out No long er eligible based on patient's age to complete this topic Hepatitis B Vaccines Aged Out No long er eligible based on patient's age to complete this topic IPV Vaccines Aged Out No longer eligi ble based on patient's age to complete this topic MMR Vaccines Aged Out No longer eligi ble based on patient's age to complete this topic Meningococcal ACWY Vaccine Aged Out N o longer eligible based on patient's age to complete this topic Meningococcal B Vacine Aged Out No lo nger eligible based on patient's age to complete this topic RSV Immunization Patients Under 20 months Aged Out No longer eligible based on patient's age to complete this topic Varicella Vaccines Aged Out No longer eligible based on patient's age to complete this topic Procedures Procedure Name Priority Date/Time Associated Diagnosis Comments CBC WITH AUTO DIFFERENTIAL Routine 06/02/2024 3:49 PM EST Medicare annual wellness visit, subsequent Other fatigue MAGNESIUM Routine 06/02/2024 3:49 PM EST Medicare annual wellness visit, subsequent THYROID STIMULATING HORMONE WITH REFLEX TO FREE T4 AND FREE T3 Routine 06/02/2024 3:49 PM EST Medicare annual wellness visit, subsequent Other fatigue VITAMIN D 25 HYDROXY Routine 06/02/2024 3:49 PM EST Medicare annual wellness visit, subsequent Vitamin D deficiency LIPID PANEL WITH REFLEX TO DIRECT LDL Routine 06/02/2024 3:49 PM EST Medicare annual wellness visit, subsequent Mixed hyperlipidemia COMPREHENSIVE METABOLIC PANEL Routine 06/02/2024 3:49 PM EST Medicare annual wellness visit, subsequent VITAMIN B12 Routine 06/02/2024 3:49 PM EST Medicare annual wellness visit, subsequent Other fatigue HEMOGLOBIN A1C Routine 06/02/2024 3:49 PM EST Medicare annual wellness visit, subsequent Other abnormal glucose CBC AND DIFFERENTIAL Routine 06/02/2024 3:49 PM EST Medicare annual wellness visit, subsequent Other fatigue BRE DEXA AXIAL SKELETON Routine 01/26/2018 11:37 AM EDT Other specified disorders of bone density and structure, unspecified site from Last 3 Months or Most Recently Relevant to Health Maintenance Results * Thyroid stimulating hormone with reflex to free t4 and free t3 (06/02/2024 3:49 PM EST) TSH 1.65 0.40 - 4.00 mcIU/mL LAB CHEMISTRY METHOD 06/02/2024 7:27 PM EST [facility] Blood Venous blood specimen / Unknown Venipuncture / Unknown 06/02/2024 3:49 PM EST 06/02/2024 3:49 PM EST Patel Monroy MD LAB BLOOD ORDERABLES Final Resul t [facility] [address] [place] [address], [place] [phone] * (ABNORMAL) Lipid panel with reflex to direct LDL (06/02/2024 3:49 PM EST) Cholesterol 243(H) 0 - 200 mg/dL LAB CHEMISTRY METHOD 06/02/2024 7:41 PM EST [facility] Triglycerides 145 0 - 150 mg/dL LAB CHEMISTRY METHOD 06/02/2024 7:41 PM EST [facility] HDL 69 >=40 mg/dL LAB CHEMISTRY METHOD 06/02/2024 7:41 PM EST [facility] LDL Calculated 145(H) 0 - 100 mg/dL LAB CHEMISTRY METHOD 06/02/2024 7:41 PM EST [facility] VLDL Cholesterol [place] 29 mg/dL LAB CHEMISTRY METHOD 06/02/2024 7:41 PM EST [facility] Non HDL Chol. (LDL+VLDL) 174(H) <145 mg/dL LAB CHEMISTRY METHOD 06/02/2024 7:41 PM EST [facility] Chol/HDL Ratio 3.5 0.0 - 4.4 LAB CHEMISTRY METHOD 06/02/2024 7:41 PM [facility] Blood Venous blood specimen / Unknown Venipuncture / Unknown 06/02/2024 3:49 PM EST 06/02/2024 3:49 PM EST Patel Monroy MD LAB BLOOD ORDERABLES Final Resul t [facility] [address] [place] [address], [place] [phone] * (ABNORMAL) CBC auto differential (06/02/2024 3:49 PM EST) WBC 10.9(H) 4.8 - 10.8 K/mcL LAB HEMETOLOGY METHOD 06/02/2024 6:34 PM [facility] RBC 4.30 3.80 - 4.80 M/mcL LAB HEMETOLOGY METHOD 06/02/2024 6:34 PM [facility] Hemoglobin 13.4 11.5 - 16.0 g/dL LAB HEMETOLOGY METHOD 06/02/2024 6:34 PM [facility] Hematocrit 41.7 35.0 - 47.0 % LAB HEMETOLOGY METHOD 06/02/2024 6:34 PM [facility] MCV 96.8 79.0 - 98.0 FL LAB HEMETOLOGY METHOD 06/02/2024 6:34 PM [facility] MCH 31.1 27.0 - 32.0 pcg LAB HEMETOLOGY METHOD 06/02/2024 6:34 PM [facility] MCHC 32.1 32.0 - 37.0 g/dL LAB HEMETOLOGY METHOD 06/02/2024 6:34 PM [facility] RDW 13.2 11.0 - 15.0 % LAB HEMETOLOGY METHOD 06/02/2024 6:34 PM [facility] Platelets 438(H) 130 - 400 K/mcL LAB HEMETOLOGY METHOD 06/02/2024 6:34 PM [facility] MPV 9.4 7.0 - 11.0 FL LAB HEMETOLOGY METHOD 06/02/2024 6:34 PM [facility] NRBC 0.0 <1.0 % LAB HEMETOLOGY METHOD 06/02/2024 6:34 PM [facility] NRBC Absolute 0.00 <0.10 K/[facility] LAB HEMETOLOGY METHOD 06/02/2024 6:34 PM [facility] Neutrophils Relative 64.6 % LAB HEMETOLOGY METHOD 06/02/2024 6:34 PM [facility] Lymphocytes Relative 23.0 % LAB HEMETOLOGY METHOD 06/02/2024 6:34 PM [facility] Monocytes Relative 9.5 % LAB HEMETOLOGY METHOD 06/02/2024 6:34 PM [facility] Eosinophils Relative 1.6 % LAB HEMETOLOGY METHOD 06/02/2024 6:34 PM [facility] Basophils Relative 0.7 % LAB HEMETOLOGY METHOD 06/02/2024 6:34 PM [facility] Immature Granulocytes Relative 0.6 % LAB HEMETOLOGY METHOD 06/02/2024 6:34 PM [facility] Neutrophils Absolute 7.04(H) 1.50 - 7.00 K/mcL LAB HEMETOLOGY METHOD 06/02/2024 6:34 PM [facility] Lymphocytes Absolute 2.51 1.00 - 5.00 K/mcL LAB HEMETOLOGY METHOD 06/02/2024 6:34 PM [facility] Monocytes Absolute 1.03(H) 0.20 - 1.00 K/mcL LAB HEMETOLOGY METHOD 06/02/2024 6:34 PM [facility] Eosinophils Absolute 0.17 0.00 - 0.50 K/mcL LAB HEMETOLOGY METHOD 06/02/2024 6:34 PM [facility] Basophils Absolute 0.08 0.00 - 0.20 K/mcL LAB HEMETOLOGY METHOD 06/02/2024 6:34 PM [facility] Immature Granulocytes Absolute 0.06(H) 0.00 - 0.03 K/mcL LAB HEMETOLOGY METHOD 06/02/2024 6:34 PM [facility] Blood Venous blood specimen / Unknown Venipuncture / Unknown 06/02/2024 3:49 PM EST 06/02/2024 3:49 PM EST Patel Monroy MD LAB BLOOD ORDERABLES Final Resul t Performing Organization Address City/[facility]/ZIP Co de Phone Number [facility] [address] [place] [address], [place] [phone] * (ABNORMAL) Vitamin D 25 hydroxy (06/02/2024 3:49 PM EST) [facility] Vit D, 25-Hydroxy 29.4(L) 30.0 - 80.0 ng/mL LAB CHEMISTRY METHOD 06/02/2024 7:30 PM EST [facility] Blood Venous blood specimen / Unknown Venipuncture / Unknown 06/02/2024 3:49 PM EST 06/02/2024 3:49 PM EST Patel Monroy MD LAB BLOOD ORDERABLES Final Resul t Performing Organization Address City/[facility]/ZIP Co de Phone Number [facility] [address] [place] [address], [place] [phone] * Magnesium (06/02/2024 3:49 PM EST) [facility] Magnesium 2.3 1.9 - 2.6 mg/dL LAB CHEMISTRY METHOD 06/02/2024 7:19 PM EST [facility] Blood Venous blood specimen / Unknown Venipuncture / Unknown 06/02/2024 3:49 PM EST 06/02/2024 3:49 PM EST Patel Monroy MD LAB BLOOD ORDERABLES Final Resul t Performing Organization Address City/[facility]/ZIP Co de Phone Number [facility] [address] [place] [address], [place] [phone] * Hemoglobin A1c (06/02/2024 3:49 PM EST) [facility] Hemoglobin A1C 5.5 <6.5 % LAB CHEMISTRY METHOD 06/02/2024 9:10 PM EST [facility] Mean Bld Glu Estim. 111 mg/dL LAB CHEMISTRY METHOD 06/02/2024 9:10 PM EST [facility] Blood Venous blood specimen / Unknown Venipuncture / Unknown 06/02/2024 3:49 PM EST 06/02/2024 3:49 PM EST Patel Monroy MD LAB BLOOD ORDERABLES Final Resul t Performing Organization Address City/[facility]/ZIP Co de Phone Number [facility] [address] [place] [address], [place] [phone] * Vitamin B12 (06/02/2024 3:49 PM EST) [facility] Vitamin B-12 590 250 - 900 pcg/mL LAB CHEMISTRY METHOD 06/02/2024 7:41 PM EST [facility] Blood Venous blood specimen / Unknown Venipuncture / Unknown 06/02/2024 3:49 PM EST 06/02/2024 3:49 PM EST Patel Monroy MD LAB BLOOD ORDERABLES Final Resul t Performing Organization Address [facility]/ZIP Co de Phone Number [facility] [address] [place] [address], [place] [phone] * (ABNORMAL) Comprehensive metabolic panel (06/02/2024 3:49 PM EST) [facility] Sodium 142 133 - 145 mmol/L LAB CHEMISTRY METHOD 06/02/2024 7:19 PM EST [facility] Potassium 4.1 3.5 - 5.5 mmol/L LAB CHEMISTRY METHOD 06/02/2024 7:19 PM EST [facility] Chloride 111(H) 96 - 110 mmol/L LAB CHEMISTRY METHOD 06/02/2024 7:19 PM EST [facility] CO2 27 21 - 32 mmol/L LAB CHEMISTRY METHOD 06/02/2024 7:19 PM [facility] Anion Gap 4 3 - 11 LAB CHEMISTRY METHOD 06/02/2024 7:19 PM [facility] Glucose 78 70 - 100 mg/dL LAB CHEMISTRY METHOD 06/02/2024 7:19 PM [facility] BUN 28(H) 5 - 25 mg/dL LAB CHEMISTRY METHOD 06/02/2024 7:19 PM [facility] Creatinine 1.14(H) 0.50 - 1.10 mg/dL LAB CHEMISTRY METHOD 06/02/2024 7:19 PM [facility] eGFR 48(L) >=60 mL/min/1. 73m2 LAB CHEMISTRY METHOD 06/02/2024 7:19 PM [facility] Comment:Calculation based on the??Chronic Kidney Disease Epidemiology Collaboration (CKD-EPI) equation refit??without adjustment for race. BUN/Creatinine Ratio 24.6 LAB CHEMISTRY METHOD 06/02/2024 7:19 PM [facility] Calcium 9.7 8.5 - 10.5 mg/dL LAB CHEMISTRY METHOD 06/02/2024 7:19 PM [facility] AST (SGOT) 35 10 - 42 unit/L LAB CHEMISTRY METHOD 06/02/2024 7:19 PM [facility] ALT (SGPT) 24 10 - 60 unit/L LAB CHEMISTRY METHOD 06/02/2024 7:19 PM [facility] Alkaline Phosphatase 93 42 - 121 unit/L LAB CHEMISTRY METHOD 06/02/2024 7:19 PM [facility] Total Protein 7.5 6.0 - 8.0 g/dL LAB CHEMISTRY METHOD 06/02/2024 7:19 PM [facility] Albumin 4.2 3.2 - 5.0 g/dL LAB CHEMISTRY METHOD 06/02/2024 7:19 PM [facility] Total Bilirubin 0.3 0.0 - 1.4 mg/dL LAB CHEMISTRY METHOD 06/02/2024 7:19 PM EST [facility] Blood Venous blood specimen / Unknown Venipuncture / Unknown 06/02/2024 3:49 PM EST 06/02/2024 3:49 PM EST Patel Monroy MD LAB BLOOD ORDERABLES Final Resul t [facility]) [facility] [address] [place] [address], * BRE DEXA AXIAL SKELETON (01/26/2018 11:37 AM EDT) Anatomical Region Laterality Modality Mammography 01/26/2018 11:0 1 AM EDT Narrative 01/26/2018 11:37 AM EDT [facility] Diagnostic Imaging Department [address] [place] [address] Patient: ??COLTEN CARTER V ?/Age/Sex: 1940 - 77 - F Unit#: ??[id number] ? Location/Status: ??SPDIMAM/REG CLI ? Mnemonic/Ordering Site: ??MAMDEXAAX/SPMAM Ordering Physician: ??DANIELLE RUIZ MD Bre Dexa Axial Skeleton - 01/26/18 - 1124 HISTORY: ??The patient is a 77-year-old postmenopausal female with clinical concern for metabolic bone disease. FINDINGS: ??Dual energy x-ray absorptiometry of the lumbar spine and femurs is performed. The mean bone mineral density at L1-L4 is 0.956 gm/cm2 which is 81% of that of young normals and 97% of that of age matched controls. This yields a T-score of -1.9 and a Z-score of -0.2 which is diagnostic of osteopenia. The mean bone mineral density of the femurs bilaterally is 0.857 gm/cm2 which is 85% of that of young normals and 109% of that of age matched controls. ??This yields a T-score of -1.2 and a Z-score of 0.6 which is diagnostic of osteopenia. The T-score of the right femoral neck is -1.9 and that of the left femoral neck is -2.1 which is diagnostic of osteopenia. IMPRESSION: 1. Osteopenia. ??There has been an increase of 2.7% in bone mineral density in the lumbar spine since the prior examination of 04/11/2015. ??There has been a decrease of 5.1% in bone mineral density in the right femur and a decrease of 6.6% in bone mineral density in the left femur. 2. FRAX analysis yields a 10-year probability of major osteoporotic fracture of 14.5% and a 10-year probability of hip fracture of 3.9%. Code 83996 Dictating Physician: ??FREDIS GRAJEDA MD Electronically Signed by: ??FREDIS GRAJEDA MD Dic Date/Time: ??01/26/18 1135 Sign date/Time: ??01/26/18 1137 Procedure Note Fredis Grajeda MD - 04/29/2022 [facility] Diagnostic Imaging Department [address] [place] [id number] Patient: COLTEN CARTERO.B./Age/Sex: 1940 - 77 - F Unit#: [id number] Location/Status: [facility]emonic[facility] Ordering Physician: DANIELLE RUIZ MD Bre Dexa Axial Skeleton - 01/26/181124 HISTORY: The patient is a 77-year-old postmenopausal female withclinical concern for metabolic bone disease. FINDINGS: Dual energy x-ray absorptiometry of the lumbar spine and femursis performed. The mean bone mineral density at L1-L4 is 0.956 gm/cm2 which is81% of that of young normals and 97% of that of age matched controls. Thisyields a T-score of -1.9 and a Z-score of -0.2 which is diagnostic of osteopenia. The mean bone mineral density of the femurs bilaterally is 0.857 gm/ea5jllfb is 85% of that of young normals and 109% of that of age matched controls.This yields a T-score of -1.2 and a Z-score of 0.6 which is diagnostic ofosteopenia. The T-score of the right femoral neck is -1.9 and that of the left femoralneck is -2.1 which is diagnostic of osteopenia. IMPRESSION: 1. Osteopenia. There has been an increase of 2.7% in bone mineral densityin the lumbar spine since the prior examination of 04/11/2015. There has mikael decrease of 5.1% in bone mineral density in the right femur and a decreaseof 6.6% in bone mineral density in the left femur. 2. FRAX analysis yields a 10-year probability of major osteoporoticfracture of 14.5% and a 10-year probability of hip fracture of 3.9%. Code 43120 Dictating Physician: FREDIS GRAJEDA MD Electronically Signed by: FREDIS GRAJEDA MD Dic Date/Time: 01/26/18 1135 Sign date/Time: 01/26/18 1137 us Danielle Ruiz MD IMG BI PROCEDURES Final Result from Last 3 Months or Most Recently Relevant to Health Maintenance Insurance [employer] MEDICARE Advance Directives Documents on File Type Date Recorded Patient Public Health Specialist Expl anation Health Care Decision (hx) 09/13/2015 AD WALKER DIRECTIVE Health Care Decision (hx) 09/13/2015 AD WALKER DIRECTIVE Health Care Decision (hx) 09/07/2015 AD WALKER DIRECTIVE Health Care Decision (hx) 09/07/2015 AD WALKER DIRECTIVE Health Care Decision (hx) 08/08/2015 AD WALKER DIRECTIVE Health Care Decision (hx) 08/08/2015 AD WALKER DIRECTIVE Health Care Decision (hx) 08/04/2015 AD WALKER DIRECTIVE Health Care Decision (hx) 08/04/2015 AD WALKER DIRECTIVE * Full Code - Confirmed (Latest Code Status on File) Date Activated Date Inactivated Comments 06/02/2024 3:37 PM This code stat us was ascertained in the following way: Code status discussion: discussion with patient To update the patient's code status, place a code status order. Do not modify or discontinue any currently active code status orders. Care Teams Stator Tester Relationship Specialty Start Date End Date Patel Monroy MD [address] [place] [id number] PCP - General 01/19/23
== END 2024-07-20 15:07 | disposition home or self-care (01) ==
LOC: HO.HSMS 13:48
PROVIDERS: PCP Student in an Organized Health Care Education/Training Program; Visit Provider Physician Assistant Medical
DX: G30.8 Other Alzheimer's disease (principal); F02.A0 Dementia in other diseases classified elsewhere, mild, without behavioral disturbance, psychotic disturbance, mood disturbance, and anxiety; E55.9 Vitamin D deficiency, unspecified; D50.9 Iron deficiency anemia, unspecified; M19.042 Primary osteoarthritis, left hand; M19.041 Primary osteoarthritis, right hand
CPT/HCPCS: 99214

== ENCOUNTER → 2024-07-20 13:48 | Outpatient (BNVA) | payer MEDICARE, SELFPAY | PROVIDERS: PCP Student in an Organized Health Care Education/Training Program; Visit Provider Physician Assistant Medical | DX: G30.8 Other Alzheimer's disease (principal); F02.A0 Dementia in other diseases classified elsewhere, mild, without behavioral disturbance, psychotic disturbance, mood disturbance, and anxiety; E55.9 Vitamin D deficiency, unspecified; D50.9 Iron deficiency anemia, unspecified; M19.042 Primary osteoarthritis, left hand; M19.041 Primary osteoarthritis, right hand | CPT/HCPCS: 99212 ==

== ENCOUNTER 2025-02-02 14:16 | Outpatient (AMB) | payer MEDICARE, SELFPAY ==
--- NOTE | 2025-02-02 14:49 | MHC.OFFVIS ---
Vital Signs 02/02/25 14:50 Height 5 ft 2 in Weight 154 lb 8 oz BMI 28.3 BP 126/78 Blood Pressure Location Lt brachial Position Sitting Pulse 78 Pulse Source Pulse Oximeter Pulse Oximetry (%) 98 Oxygen Delivery Method Room Air Intake Visit Reasons: 6 mnts f/u appt Intake Note: Patient presents follow up Alzheimer dementia. Accompanied by: Son Allergies No Known Allergies Allergy (Verified 02/02/25 14:53) HPI Comments Details: 84 y/o female comes for an evaluation of cognitive decline. She is accompanied by her son today and he helps with history today. Her family noticed she was having memory issues for 5 years now and progressively worsened. She denies falls and her mood is good. She has trouble with names, dates, repeating, missing bills, misplacing things, purse etc. She writes everything down so she doesn't forget especially appointments on a calender. She lives alone in an independently in her house and goes to the [facility] center 2x a [facility], plays Bingo. Her daughter oversees her finances. She does not remember her grand children's names and does not know her grand children. Her brother brings dinner every night so she does not cook. 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 She now has bilateral hearing aids and hearing is much improved. She walks 1 mile daily, and drinks plenty of water. FH + mom having dementia. HST discussed today and pt is undecided, will discuss and f/u. [facility] Medical History Dementia Hemorrhoids Diverticulosis Skin cancer Vitamin D deficiency Nephrolithiasis Small bowel obstruction Cholelithiasis Colonic polyp Iron deficiency anemia Osteopenia Hyperlipidemia Surgical History H/O lithotripsy Hx of cholecystectomy Social History Household Members: None Housing: House Alcohol intake: never Patient Tobacco Use Status: Never used Tobacco Physical Exam Vital Signs: Last Vital Signs Pulse 78 02/02/25 14:50 BP 126/78 02/02/25 14:50 Pulse Ox 98 02/02/25 14:50 Oxygen Delivery Method Room Air 02/02/25 14:50 BMI result Body Mass Index 28.3 Const Other: MOCA- - see attached document for details General: cooperative, healthy appearing, comfortable and no acute distress Nutritional Appearance: average body habitus Eyes Pupils: Equal, round and reactive pupils present Neuro General: gait normal, tone normal, moves all extremities and no focal motor deficits Cranial nerves: Yes Facial sensation intact/muscles of mastication intact, Yes Equal, round and reactive pupils present, Yes Bilaterally intact EOM present, Yes Nystagmus not present, Yes Normal facial strength present, Yes Midline tongue present, Yes Symmetric palate elevation present, Yes Ability to bilaterally rotate head present and Yes Ability to bilaterally elevate shoulders present Gait exam (Neuro): Normal gait present Motor exam (neuro): 5/5 motor strength present throughout and Normal motor muscle tone present throughout Psych Appearance: grossly normal Speech and movement: Normal speech and movement present Assessment & Plan Assessment & Plan (1) Dementia: Comment: likely ALzheimers Code(s): F03.90 - Unspecified dementia, unspecified severity, without behavioral disturbance, psychotic disturbance, mood disturbance, and anxiety Category: Medical Qualifiers: Alzheimer's disease onset: other onset Dementia behavioral or psychological symptom: without behavioral, psychotic, or mood disturbance or anxiety Dementia severity: mild Dementia type: Alzheimer's Qualified Code(s): G30.8 - Other Alzheimer's disease; F02.A0 - Dementia in other diseases classified elsewhere, mild, without behavioral disturbance, psychotic disturbance, mood disturbance, and anxiety (2) Anemia: Code(s): D64.9 - Anemia, unspecified Category: Medical Qualifiers: Anemia type: iron deficiency Iron deficiency anemia type: other iron deficiency Qualified Code(s): D50.8 - Other iron deficiency anemias Plan AD will start her on memantine 7mg po sprinkle daily for 2 weeks and titrate up to 14mg for 2 weeks, then 21mg for 2 weeks and then 28 mg maintenance dose. MOCA completed at last visit. HST if pt is amenable. Son will f/u with a phone call to the clinic. Reviewed labs with pt today. Will evalaute for anemia and deficiencies. F/u as needed 3 monhts if HST is pending or 6 months if not doing a HST. Orders: Orders Complete Blood Count no Diff Today D64.9 - Anemia, unspecified Ferritin Today D64.9 - Anemia, unspecified Hemoglobin A1c Today D64.9 - Anemia, unspecified Methylmalonic Acid Today D64.9 - Anemia, unspecified, G47.9 - Sleep disorder, unspecified, R53.83 - Other fatigue Homocysteine Today D64.9 - Anemia, unspecified, G47.9 - Sleep disorder, unspecified, R53.83 - Other fatigue Vitamin B12 and Folate Today D64.9 - Anemia, unspecified Vitamin B6 Today D64.9 - Anemia, unspecified TSH reflex Free T4 Today D64.9 - Anemia, unspecified Vitamin B1 Today D64.9 - Anemia, unspecified Comprehensive Met. Panel Today D64.9 - Anemia, unspecified Vitamin D 25-OH Total Today D64.9 - Anemia, unspecified Medications: New memantine Start this medication at 7mg PO daily for one week, then titrate up to the next dose of 14mg PO daily for one week, then titrate up to 21mg PO daily for one week, then titrate up to 28mg PO daily for ongoing maintenance dose of 28mg PO daily. 7 mg PO DAILY 30 ea 0RF memory impairment 1 month MDD 7mg F02.A0 - Dementia in other diseases classified elsewhere, mild, without behavioral disturbance, psychotic disturbance, mood disturbance, and anxiety, G30.8 - Other Alzheimer's disease Coding Level of Care Code Est Pt Level 4 (42962) Diagnoses Mild Alzheimer's dementia of other onset, without behavioral disturbance, psychotic disturbance, mood disturbance, or anxiety G30.8; F02.A0 Alzheimer's disease onset: other onset Dementia behavioral or psychological symptom: without behavioral, psychotic, or mood disturbance or anxiety Dementia severity: mild Dementia type: Alzheimer's Other iron deficiency anemia D50.8 Anemia type: iron deficiency Iron deficiency anemia type: other iron deficiency
[2025-02-02 14:50] VITALS: BP 126/78; PULSE 78; O2SAT 98; BMI 28.3
== END 2025-02-02 15:34 | disposition home or self-care (01) ==
LOC: HO.HSMS 14:17
PROVIDERS: PCP Student in an Organized Health Care Education/Training Program; Visit Provider Physician Assistant Medical
DX: G30.8 Other Alzheimer's disease (principal); F02.A0 Dementia in other diseases classified elsewhere, mild, without behavioral disturbance, psychotic disturbance, mood disturbance, and anxiety; D50.8 Other iron deficiency anemias
CPT/HCPCS: 99214

== ENCOUNTER → 2025-02-02 14:16 | Outpatient (BNVA) | payer MEDICARE, SELFPAY | PROVIDERS: PCP Student in an Organized Health Care Education/Training Program; Visit Provider Physician Assistant Medical | DX: G30.8 Other Alzheimer's disease (principal); F02.A0 Dementia in other diseases classified elsewhere, mild, without behavioral disturbance, psychotic disturbance, mood disturbance, and anxiety; D50.8 Other iron deficiency anemias | CPT/HCPCS: 99212 ==